=== PATIENT | female | born 1970 | race African-American/Black ===

== ENCOUNTER → 2017-10-26 | Day surgery (SDC) | payer OTHER | END | disposition home or self-care (01) | LOC: FRADUS-SUR 07:32 | PROVIDERS: ATTEND Obstetrics & Gynecology Reproductive Endocrinology | PROC: BU081ZZ Plain Radiography of Uterus and Fallopian Tubes using Low Osmolar Contrast (ICD-10-PCS; principal; 2017-10-26) | DX: Z31.41 Encounter for fertility testing (principal) | CPT/HCPCS: 58340; 74740-TC; 76000-TC; 84703; Q9967 ==